=== PATIENT | female | born 1970 | race Caucasian/White ===

== ENCOUNTER 2016-11-03 08:38 | Emergency (ER) | payer BC ==
[2016-11-03] MEDS ORDERED: NS 0.9% 1000 ML* 1,000 ML IV ONE (08:58)
[2016-11-03] MEDS ORDERED: Ondansetron INJ* 2 MG/ML VIAL IV ONE (08:58)
[2016-11-03 09:40] LABS: Hematocrit 42 % (35-47); Hemoglobin 13.9 g/dl (12.0-16.0); Mean Corpuscular HGB Conc 34 g/dl (31-36); Mean Corpuscular Hemoglobin 32 pg (27-31); Mean Corpuscular Volume 94 fL (80-97); Mean Platelet Volume 9 um3 (7.4-10.4); Red Cell Distribution Width 13 % (10.5-15); White Blood Count 6.8 10^3/ul (3.5-10.8)
[2016-11-03 09:48] LABS: ALT 15 U/L (7-52); AST 17 U/L (13-39); Albumin 4.4 g/dL (3.2-5.2); Alkaline Phosphatase 40 U/L (34-104); Amylase 36 U/L (29-103); Anion Gap 6 mmol/L (2-11); BUN/Creatinine Ratio 12.4 (8-20); Blood Urea Nitrogen 13 mg/dL (6-24); C Reactive Protein < 1.00 mg/L (< 5.00); CO2 Carbon Dioxide 28 mmol/L (22-32); Calcium 9.4 mg/dL (8.6-10.3); Chloride 104 mmol/L (101-111); EGFR African American 72.2 (>60); EGFR Non-African American 56.2 (>60); Globulin 2.7 g/dL (2-4); Glucose 99 mg/dL (70-100); Lipase 16 U/L (11.0-82.0); Potassium 3.5 mmol/L (3.5-5.0); Sodium 138 mmol/L (133-145); Total Protein 7.1 g/dL (6.4-8.9)
[2016-11-03 09:52] LABS: Urine Bacteria 1+ (Absent); Urine Bilirubin Negative (Negative); Urine Glucose Negative (Negative); Urine Nitrite Negative (Negative)
[2016-11-03] MEDS ORDERED: Iodixanol* (CONTRAST) 320 MG/ML 100 ML SDV IV ONE (10:20)
--- NOTE | 2016-11-03 12:22 | RAD ---
Indication: Right lower quadrant pain. Contrast: Administered 114.0 ml of VISAPAQUE 320 mg/ml CT of the abdomen and pelvis was performed after oral and IV contrast administration. Coronal and sagittal reconstructed images were obtained. Lung bases demonstrate no pleural fluid. Dependent changes are noted. Heart demonstrates no pericardial effusion. Liver is normal in size. No focal lesions or intrahepatic ductal dilatation is noted. The patient status post cholecystectomy. The pancreas demonstrates no mass or pancreatic duct dilatation. The spleen is normal in size. No adrenal masses are noted. The kidneys demonstrate symmetric nephrograms without focal lesions. Aorta and inferior vena cava are unremarkable. CT of the pelvis demonstrates no retroperitoneal or pelvic lymphadenopathy. The uterus and ovaries are unremarkable. No dilated loops of bowel are noted. The appendix is normal. No hernias are noted. The urinary bladder is partially collapsed. There is grade 1 spondylolisthesis of L5 on S1. There are transpedicular screws at L5 and S1 with posterior fusion. The urinary bladder is unremarkable. Prominent periureteral vessels are noted especially on the left with enlarged left ovarian vein. The possibility of pelvic congestion syndrome should be considered. IMPRESSION: Normal appendix. No abnormal masses or fluid collections are noted. Postoperative changes in the lumbar spine. Prominent vasculature especially surrounding the left uterus. Prominent left ovarian vein and the possibility of pelvic congestion syndrome should be considered.
[2016-11-03 12:50] VITALS: BP 114/69
--- NOTE | 2016-11-03 17:44 | ED ---
Layne Uriostegui Thomas, scribed for Sukhdeep Souza MD on 11/03/16 at 1021 . Abdominal Pain/Female - HPI Summary HPI Summary: The pt is a 46 y/o F presenting to the ED c/o abd pain that began a month ago. The pain is diffuse but worse on her R side and periumbilical region. The pain is intermittent and described as cramping and burning. The pain is rated 3/10. The pain is aggravated by certain foods (she reports that she has been eating mostly sherbert in the last month). She also describes a sensation characterized as I feel that I am full of gas but Im not eating that much." The pain is alleviated by nothing. The patient has not treated the pain with anything SOLUTION MIXER. Pt denies vaginal discharge, vaginal bleeding, vomiting, SOB, and fever. PMHx: ovarian cysts, hypoglycemia. PSHx: neck surgery. SHx: smoking, occasional alcohol use, no illicit drugs. Her last menstrual cycle was in 2011. In the past, she has had abdominal pains similar to this but they eventually resolve spontaneously in a couple months. - History of Current Complaint Chief Complaint: EDAbdPain Stated Complaint: ABD PAIN/NAUSEA/TIRED Time Seen by Provider: 11/03/16 08:48 Hx Obtained From: Patient Hx Last Menstrual Period: 11/2011, had alot of surgeries, and periods stopped Onset/Duration: Lasting Weeks - one month, Still Present Timing: Intermittent Episode Lasting Pain Intensity: 3 Pain Scale Used: 0-10 Numeric Location: Diffuse - but worse on R side and periumbilicus Radiates: No Character: Burning, Cramping Aggravating Factor(s): Food - certain foods Associated Signs and Symptoms: Positive: Nausea, Diarrhea, Other: - POS: excessive gas; NEG: SOB. Negative: Fever, Blood in Stool, Vaginal Bleeding, Vaginal Discharge, Vomiting Allergies/Adverse Reactions: Allergies Allergy/AdvReac Type Severity Reaction Status Date / Time Sulfa Drugs Allergy Intermediate Hives Verified 07/12/15 06:58 Adhesive Tape Allergy Mild Rash Verified 07/12/15 06:58 Codeine Allergy Mild See Comment Verified 07/12/15 06:58 Morphine and Related AdvReac Intermediate Nausea And Verified 07/12/15 06:58 Vomiting PMH/Surg Hx/FS Hx/Imm Hx Previously Healthy: No Endocrine/Hematology History: Reports: Other Endocrine/Hematological Disorders - Hx hypoglycemia Denies: Hx Diabetes, Hx Thyroid Disease Cardiovascular History: Denies: Hx Hypertension Respiratory History: Denies: Hx Asthma, Hx Chronic Obstructive Pulmonary Disease (COPD) GI History: Denies: Hx Ulcer, Other GI Disorders - bone spurs-C3/C4, cspine surgery x 2 History: Reports: Other Problems/Disorders - Hx PCOS Musculoskeletal History: Reports: Hx Back Problems Denies: Hx Osteoporosis Sensory History: Denies: Hx Contacts or Glasses, Hx Hearing Aid Opthamlomology History: Denies: Hx Contacts or Glasses Neurological History: Reports: Hx Migraine - R/T NECK - Surgical History Surgery Procedure, Year, and Place: L5 disk, hardware 2010, Neck surgeries, back surgeries. Cervical to thoracic discs. CHOLECYSTECTOMY, 3 C-SECTIONS Hx Anesthesia Reactions: No - Immunization History Date of Tetanus Vaccine: Unknown Infectious Disease History: No Infectious Disease History: Denies: Hx Hepatitis, Hx Human Immunodeficiency Virus (HIV), History Other Infectious Disease, Traveled Outside the [place] in Last 30 Days - Family History Known Family History: Negative: Hypertension, Diabetes - Social History Alcohol Use: Occasionally Substance Use Type: Reports: None Smoking Status (MU): Current Every Day Smoker Type: Cigarettes Amount Used/How Often: 1/2 ppd Length of Time of Smoking/Using Tobacco: 30 years Review of Systems Negative: Fever Negative: Shortness Of Breath Positive: Abdominal Pain - 3/10, onset 1 month, cramping/burning, worsened with food, diffuse but greatest in severity on R side and periumbilicus, Diarrhea - without blood, Nausea, Other - POS: excessive gas. Negative: Vomiting Negative: discharge, other - NEG: vaginal bleeding All Other Systems Reviewed And Are Negative: Yes Physical Exam - Summary Physical Exam Summary: VITAL SIGNS: Reviewed. GENERAL: Patient is a well-developed and nourished female who is lying comfortable in the stretcher. ~Patient is not in any acute respiratory distress. HEAD AND FACE: Normocephalic and atraumatic. EYES: PERRLA, EOMI x 2, No injected conjunctiva. EARS: Hearing grossly intact. Ear canals and tympanic membranes are WNL. MOUTH: Oropharynx within normal limits. NECK: Supple, trachea is midline, no adenopathy, no JVD. CHEST: Symmetric, no tenderness at palpation LUNGS: Clear to auscultation bilaterally. No wheezing or crackles. CVS: RRR, S1 and S2 present, no murmurs or gallops appreciated. ABDOMEN: There is RLQ tenderness. Soft, no signs of distention. Positive bowel sounds. No rebound no guarding, and no masses palpated. No abdominal bruit or pulsations. EXTREMITIES: FROM in all major joints, no edema, no cyanosis or clubbing. NEURO: Alert and oriented x 3. No acute neurological deficits. Speech is normal. SKIN: Dry and warm Triage Information Reviewed: Yes Vital Signs On Initial Exam: Initial Vitals Temp Pulse Resp BP Pulse Ox 98.0 F 97 20 139/79 100 11/03/16 08:41 11/03/16 08:41 11/03/16 08:41 11/03/16 08:41 11/03/16 08:41 Vital Signs Reviewed: Yes - Antonio Coma Scale Coma Scale Total: 15 Diagnostics - Vital Signs Vital Signs Temp Pulse Resp BP Pulse Ox 11/03/16 10:00 63 110/78 100 11/03/16 09:30 66 110/83 97 11/03/16 09:24 71 96 11/03/16 09:00 97.8 F 81 14 117/73 100 11/03/16 08:41 98.0 F 97 20 139/79 100 - Laboratory Lab Results: Lab Results 11/03/16 11/03/16 11/03/16 Range/Units 09:18 09:18 09:18 WBC 6.8 (3.5-10.8) 10^3/ul RBC 4.40 (4.0-5.4) 10^6/ul Hgb 13.9 (12.0-16.0) g/dl Hct 42 (35-47) % MCV 94 (80-97) fL MCH 32 H (27-31) pg MCHC 34 (31-36) g/dl RDW 13 (10.5-15) % Plt Count 354 (150-450) 10^3/ul MPV 9 (7.4-10.4) um3 Neut % (Auto) 61.5 (38-83) % Lymph % (Auto) 29.0 (25-47) % [place] % (Auto) 7.1 (1-9) % Eos % (Auto) 1.7 (0-6) % Baso % (Auto) 0.7 (0-2) % Absolute Neuts (auto) 4.2 (1.5-7.7) 10^3/ul Absolute Lymphs (auto) 2.0 (1.0-4.8) 10^3/ul Absolute Monos (auto) 0.5 (0-0.8) 10^3/ul Absolute Eos (auto) 0.1 (0-0.6) 10^3/ul Absolute Basos (auto) 0 (0-0.2) 10^3/ul Absolute Nucleated RBC 0.01 10^3/ul Nucleated RBC % 0.1 Sodium 138 (133-145) mmol/L Potassium 3.5 (3.5-5.0) mmol/L Chloride 104 (101-111) mmol/L Carbon Dioxide 28 (22-32) mmol/L Anion Gap 6 (2-11) mmol/L BUN 13 (6-24) mg/dL Creatinine 1.05 H (0.51-0.95) mg/dL Est GFR ( Amer) 72.2 (>60) Est GFR (Non-Af Amer) 56.2 (>60) BUN/Creatinine Ratio 12.4 (8-20) Glucose 99 (70-100) mg/dL Lactic Acid (0.5-2.0) mmol/L Calcium 9.4 (8.6-10.3) mg/dL Total Bilirubin 1.00 (0.2-1.0) mg/dL AST 17 (13-39) U/L ALT 15 (7-52) U/L Alkaline Phosphatase 40 (34-104) U/L C-Reactive Protein < 1.00 (< 5.00) mg/L Total Protein 7.1 (6.4-8.9) g/dL Albumin 4.4 (3.2-5.2) g/dL Globulin 2.7 (2-4) g/dL Albumin/Globulin Ratio 1.6 (1-3) Amylase 36 (29-103) U/L Lipase 16 (11.0-82.0) U/L Urine Color Straw Urine Appearance Clear Urine pH 6.0 (5-9) Ur Specific [place] 1.002 L (1.010-1.030) Urine Protein Negative (Negative) Urine Ketones Negative (Negative) Urine Blood 1+ H (Negative) Urine Nitrate Negative (Negative) Urine Bilirubin Negative (Negative) Urine Urobilinogen Negative (Negative) Ur Leukocyte Esterase Negative (Negative) Urine WBC (Auto) Absent (Absent) Urine RBC (Auto) Trace(0-2/hpf) (Absent) Urine Bacteria 1+ H (Absent) Urine Glucose Negative (Negative) 11/03/16 Range/Units 09:18 WBC (3.5-10.8) 10^3/ul RBC (4.0-5.4) 10^6/ul Hgb (12.0-16.0) g/dl Hct (35-47) % MCV (80-97) fL MCH (27-31) pg MCHC (31-36) g/dl RDW (10.5-15) % Plt Count (150-450) 10^3/ul MPV (7.4-10.4) um3 Neut % (Auto) (38-83) % Lymph % (Auto) (25-47) % [place] % (Auto) (1-9) % Eos % (Auto) (0-6) % Baso % (Auto) (0-2) % Absolute Neuts (auto) (1.5-7.7) 10^3/ul Absolute Lymphs (auto) (1.0-4.8) 10^3/ul Absolute Monos (auto) (0-0.8) 10^3/ul Absolute Eos (auto) (0-0.6) 10^3/ul Absolute Basos (auto) (0-0.2) 10^3/ul Absolute Nucleated RBC 10^3/ul Nucleated RBC % Sodium (133-145) mmol/L Potassium (3.5-5.0) mmol/L Chloride (101-111) mmol/L Carbon Dioxide (22-32) mmol/L Anion Gap (2-11) mmol/L BUN (6-24) mg/dL Creatinine (0.51-0.95) mg/dL Est GFR ( Amer) (>60) Est GFR (Non-Af Amer) (>60) BUN/Creatinine Ratio (8-20) Glucose (70-100) mg/dL Lactic Acid 1.0 (0.5-2.0) mmol/L Calcium (8.6-10.3) mg/dL Total Bilirubin (0.2-1.0) mg/dL AST (13-39) U/L ALT (7-52) U/L Alkaline Phosphatase (34-104) U/L C-Reactive Protein (< 5.00) mg/L Total Protein (6.4-8.9) g/dL Albumin (3.2-5.2) g/dL Globulin (2-4) g/dL Albumin/Globulin Ratio (1-3) Amylase (29-103) U/L Lipase (11.0-82.0) U/L Urine Color Urine Appearance Urine pH (5-9) Ur Specific [place] (1.010-1.030) Urine Protein (Negative) Urine Ketones (Negative) Urine Blood (Negative) Urine Nitrate (Negative) Urine Bilirubin (Negative) Urine Urobilinogen (Negative) Ur Leukocyte Esterase (Negative) Urine WBC (Auto) (Absent) Urine RBC (Auto) (Absent) Urine Bacteria (Absent) Urine Glucose (Negative) Result Diagrams: 11/03/16 09:18 11/03/16 09:18 Lab Statement: Any lab studies that have been ordered have been reviewed, and results considered in the medical decision making process. - CT CT Abd/Pel CT Interpretation: Positive (See Comments) - Normal appendix. No abnormal masses or fluid collections are noted. Postoperative changes in the lumbar spine. Prominent vasculature especially surrounding the left uterus. Prominent left ovarian vein and the possibility of pelvic congestion syndrome should be considered. CT Interpretation Completed By: Radiologist Abdominal Pain Fem Course/Dx - Course Course Of Treatment: The pt is a 46 y/o F presenting to the ED c/o abd pain that began a month ago. The pain is diffuse but worse on her R side and periumbilical region. The pain is intermittent and described as cramping and burning. The pain is rated 3/10. The pain is aggravated by certain foods (she reports that she has been eating mostly sherbert in the last month). She also describes a sensation characterized as I feel that I am full of gas but Im not eating that much. The pain is alleviated by nothing. The patient has not treated the pain with anything SOLUTION MIXER. Pt additionally c/o nausea, excessive gas, and diarrhea (without blood). Pt denies vaginal discharge, vaginal bleeding, vomiting, SOB, and fever. PMHx: ovarian cysts, hypoglycemia. PSHx: neck surgery. SHx: smoking, occasional alcohol use, no illicit drugs. Her last menstrual cycle was in 2011. In the past, she has had abdominal pains similar to this but they eventually resolve spontaneously in a couple months. Test results are without any significant abnormality. UA is negative for UTI. CT Abd/ Pel reveals Normal appendix. No abnormal masses or fluid collections are noted. Postoperative changes in the lumbar spine. Prominent vasculature especially surrounding the left uterus. Prominent left ovarian vein and the possibility of pelvic congestion syndrome should be considered. I offered the paitnet a pelvic exam but she declined. The patients symptoms have improved and the patient is asymptomatic. The patient has been unable to give any stool samples even though the patient has been here for approximately 6 hours. The patient will be discharged home with follow up from her PCP. She is hemodynamically stale and alert and oriented x3. I discussed all the findings and test results with the patient. Patient was instructed to return to the emergency room immediately if any of the symptoms return or worsens. Plan of care was discussed with the patient and understands and agrees. All questions were answered at patient satisfaction. There were no further complaints or concerns. - Diagnoses Differential Diagnosis: Positive: Appendicitis, Bowel Obstruction, Constipation , Diverticulitis, Irritable Bowel Syndrome, Ovarian Cyst, Pancreatitis, Renal Colic, Urinary Tract Infection Provider Diagnoses: Abdominal pain, Pelvic congestion Discharge - Discharge Plan Condition: Stable Disposition: HOME Prescriptions: Ondansetron TAB* [Zofran 4 MG Tab*] 4 mg PO Q6H PRN #12 tab PRN Reason: Vomiting Patient Education Materials: Abdominal Pain (ED) Referrals: Herb Cintron MD [Primary Care Provider] - 3 Days The documentation as recorded by the Layne lewis Thomas accurately reflects the service I personally performed and the decisions made by me, Sukhdeep Souza MD.
== END 2016-11-03 13:40 | disposition home or self-care (01) ==
LOC: ED 08:38
DX: N94.89 Other specified conditions associated with female genital organs and menstrual cycle (principal); R10.9 Unspecified abdominal pain
CPT/HCPCS: 36415; 74177; 80053; 81003; 81015; 82150; 83605; 83690; 85025; 86140; 87086; 96374; 99282; J2405; Q9967

== ENCOUNTER 2017-10-06 15:51 | Emergency (ER) | payer BC ==
[2017-10-06 16:54] LABS: ABS Basophils 0 10^3/ul (0-0.2); ABS Eosinophils 0.1 10^3/ul (0-0.6); ABS Lymphocytes 2.4 10^3/ul (1.0-4.8); ABS Monocytes 0.5 10^3/ul (0-0.8); ABS Neutrophils 3.2 10^3/ul (1.5-7.7); ABS Nucleated RBC 0 10^3/ul; Eosinophil % 2.3 % (0-6); Hematocrit 40 % (35-47); Hemoglobin 13.5 g/dl (12.0-16.0); Lymphocyte % 38.4 % (25-47); Mean Corpuscular HGB Conc 34 g/dl (31-36); Mean Corpuscular Hemoglobin 32 pg (27-31); Mean Corpuscular Volume 93 fL (80-97); Mean Platelet Volume 8.6 um3 (7.4-10.4); Nucleated Red Blood Cells % 0; Platelet Count 351 10^3/ul (150-450); Red Blood Count 4.28 10^6/ul (4.00-5.40); Red Cell Distribution Width 13 % (10.5-15); White Blood Count 6.2 10^3/ul (3.5-10.8)
[2017-10-06 17:15] LABS: EGFR Non-African American 60.6 (>60)
[2017-10-06 18:49] LABS: Urine Appearance Clear; Urine Blood 2+ (Negative); Urine Color Yellow; Urine Ketones Negative (Negative); Urine Protein Negative (Negative); Urine Red Blood Cell 1+(3-5/hpf) (Absent); Urine Specific Gravity 1.009 (1.010-1.030); Urine Urobilinogen Negative (Negative); Urine White Blood Cell Absent (Absent)
--- NOTE | 2017-10-06 19:24 | ED ---
Back Pain - HPI Summary HPI Summary: This is debbie Marino documenting for attending physician Freddie Fulton M.D. Pt is a 47 y/o F w/ c/o right-sided back, right-sided flank, and right- sided abdomen pain onsetting three days ago. Pain is described as constant and, on triage, radiating into groin and pain is rated 8/10 on triage. Pain is noted to be worst by right flank down by hip and reports that movement worsens pain. In the room, she notes being, "fairly comfortable". Pt notes nausea but denies vomiting, diarrhea, dysuria, and blood in urine. She reports taking ibuprofen and LNMP was 2011. Pt denies Hx of kidney problems. - History of Current Complaint Chief Complaint: EDFlankPain Stated Complaint: PAIN ON RT SIDE Time Seen by Provider: 10/06/17 18:53 Hx Obtained From: Patient Hx Last Menstrual Period: 11/2011, had alot of surgeries, and periods stopped Onset/Duration: Lasting Days - 3 days ago Onset/Duration: Started Days Ago - 3 days ago Timing: Constant Severity Currently: Severe Pain Intensity: 8 Pain Scale Used: 0-10 Numeric - 8/10 Aggravating Symptom(s): Movement Alleviating Symptom(s): Nothing Associated Signs And Symptoms: Positive: Abdominal Pain - right, Flank Pain - right, Other - POSITIVE: right-sided back pain, radiating pain to groin, nausea NEGATIVE: vomiting, diarrhea, dysuria, blood in urine - Allergies/Home Medications Allergies/Adverse Reactions: Allergies Allergy/AdvReac Type Severity Reaction Status Date / Time MS Sulfa Drugs [Sulfa Drugs] Allergy Intermediate Hives Verified 10/06/17 16:03 Adhesive Tape Allergy Mild Rash Verified 10/06/17 16:03 MS Codeine [Codeine] Allergy Mild See Comment Verified 10/06/17 16:03 MS Morphine and Related AdvReac Intermediate Nausea And Verified 10/06/17 16:03 [Morphine and Related] Vomiting Home Medications: Home Medications Cholecalciferol TAB* [Vitamin D TAB*] 1,000 unit PO DAILY 10/06/17 [History Confirmed 10/06/17] Diazepam TAB(*) [Valium TAB(*)] 10 mg PO BEDTIME PRN 10/06/17 [History Confirmed 10/06/17] Ferrous Sulfate TAB* 325 mg PO DAILY 10/06/17 [History Confirmed 10/06/17] Ibuprofen TAB* [Motrin TAB* 800 MG] 800 mg PO BEDTIME PRN 10/06/17 [History Confirmed 10/06/17] PMH/Surg Hx/FS Hx/Imm Hx Endocrine/Hematology History: Reports: Other Endocrine/Hematological Disorders - Hx hypoglycemia Denies: Hx Diabetes, Hx Thyroid Disease Cardiovascular History: Denies: Hx Hypertension, Hx Pacemaker/ICD Respiratory History: Denies: Hx Asthma, Hx Chronic Obstructive Pulmonary Disease (COPD) GI History: Denies: Hx Ulcer, Other GI Disorders - bone spurs-C3/C4, cspine surgery x 2 History: Reports: Other Problems/Disorders - Hx PCOS Denies: Hx Renal Disease Musculoskeletal History: Reports: Hx Back Problems Denies: Hx Osteoporosis Sensory History: Denies: Hx Contacts or Glasses, Hx Hearing Aid Opthamlomology History: Denies: Hx Contacts or Glasses Neurological History: Reports: Hx Migraine - R/T NECK Psychiatric History: Denies: Hx Panic Disorder - Surgical History Surgery Procedure, Year, and Place: L5 diskX2 WITH HARDWARE 2009. 3 LEVEL Cervical FUSION. CHOLECYSTECTOMY, 3 C-SECTIONS Hx Anesthesia Reactions: No - Immunization History Date of Tetanus Vaccine: Unknown Infectious Disease History: No Infectious Disease History: Denies: Hx Hepatitis, Hx Human Immunodeficiency Virus (HIV), History Other Infectious Disease, Traveled Outside the [place] in Last 30 Days - Family History Known Family History: Negative: Hypertension, Diabetes - Social History Alcohol Use: Occasionally Substance Use Type: Reports: None Smoking Status (MU): Current Every Day Smoker Type: Cigarettes Amount Used/How Often: 1/2 ppd Length of Time of Smoking/Using Tobacco: 30 years Review of Systems Positive: Abdominal Pain - right sided , Nausea. Negative: Vomiting, Diarrhea Positive: flank pain - right sided, other - NEGATIVE: blood in urine POSITIVE: radiating pain to groin. Negative: dysuria Positive: Other - right sided back pain All Other Systems Reviewed And Are Negative: Yes Physical Exam - Summary Physical Exam Summary: Appearance: Well-appearing, Well-nourished, lying in bed comfortably Skin: Warm, dry, no obvious rash Eyes: sclera anicteric, no conjunctival pallor ENT: mucous membranes moist, pharynx appears normal Neck: Supple, nontender Respiratory: Clear to auscultation, no signs of respiratory distress Cardiovascular: Normal S1, S2. No murmurs. Normal distal pulses in tibial and radial bilaterally. Abdomen: Soft, nontender, normal active bowel sounds present Musculoskeletal: Normal, Strength/ROM Intact Neurological: A&Ox3, awake and alert, mentation is normal, speech is fluent and appropriate Psychiatric: affect is normal, does not appear anxious or depressed Triage Information Reviewed: Yes Vital Signs On Initial Exam: Initial Vitals Temp Pulse Resp BP Pulse Ox 97.8 F 84 16 135/73 98 10/06/17 16:01 10/06/17 16:01 10/06/17 16:01 10/06/17 16:01 10/06/17 16:01 Vital Signs Reviewed: Yes Diagnostics - Vital Signs Vital Signs Temp Pulse Resp BP Pulse Ox 10/06/17 17:40 70 16 121/65 10/06/17 16:01 97.8 F 84 16 135/73 98 - Laboratory Lab Results: Lab Results 10/06/17 10/06/17 10/06/17 Range/Units 16:45 16:45 18:27 WBC 6.2 (3.5-10.8) 10^3/ul RBC 4.28 (4.00-5.40) 10^6/ul Hgb 13.5 (12.0-16.0) g/dl Hct 40 (35-47) % MCV 93 (80-97) fL MCH 32 H (27-31) pg MCHC 34 (31-36) g/dl RDW 13 (10.5-15) % Plt Count 351 (150-450) 10^3/ul MPV 8.6 (7.4-10.4) um3 Neut % (Auto) 51.2 (38-83) % Lymph % (Auto) 38.4 (25-47) % [place] % (Auto) 7.4 H (0-7) % Eos % (Auto) 2.3 (0-6) % Baso % (Auto) 0.7 (0-2) % Absolute Neuts (auto) 3.2 (1.5-7.7) 10^3/ul Absolute Lymphs (auto) 2.4 (1.0-4.8) 10^3/ul Absolute Monos (auto) 0.5 (0-0.8) 10^3/ul Absolute Eos (auto) 0.1 (0-0.6) 10^3/ul Absolute Basos (auto) 0 (0-0.2) 10^3/ul Absolute Nucleated RBC 0 10^3/ul Nucleated RBC % 0 Sodium 140 (135-145) mmol/L Potassium 4.5 (3.5-5.0) mmol/L Chloride 106 (101-111) mmol/L Carbon Dioxide 28 (22-32) mmol/L Anion Gap 6 (2-11) mmol/L BUN 13 (6-24) mg/dL Creatinine 0.98 H (0.51-0.95) mg/dL Est GFR ( Amer) 73.3 (>60) Est GFR (Non-Af Amer) 60.6 (>60) BUN/Creatinine Ratio 13.3 (8-20) Glucose 91 (70-100) mg/dL Calcium 9.8 (8.6-10.3) mg/dL Total Bilirubin 0.90 (0.2-1.0) mg/dL AST 18 (13-39) U/L ALT 15 (7-52) U/L Alkaline Phosphatase 37 (34-104) U/L Total Protein 7.0 (6.4-8.9) g/dL Albumin 4.5 (3.2-5.2) g/dL Globulin 2.5 (2-4) g/dL Albumin/Globulin Ratio 1.8 (1-3) Lipase 19 (11.0-82.0) U/L Urine Color Yellow Urine Appearance Clear Urine pH 6.0 (5-9) Ur Specific [place] 1.009 L (1.010-1.030) Urine Protein Negative (Negative) Urine Ketones Negative (Negative) Urine Blood 2+ A (Negative) Urine Nitrate Negative (Negative) Urine Bilirubin Negative (Negative) Urine Urobilinogen Negative (Negative) Ur Leukocyte Esterase Negative (Negative) Urine WBC (Auto) Absent (Absent) Urine RBC (Auto) 1+(3-5/hpf) A (Absent) Ur Squamous Epith Cells Present A (Absent) Urine Bacteria Absent (Absent) Urine Glucose Negative (Negative) Result Diagrams: 10/06/17 16:45 10/06/17 16:45 Lab Statement: Any lab studies that have been ordered have been reviewed, and results considered in the medical decision making process. - CT CT abd/pel CT Interpretation: No Acute Changes CT Interpretation Completed By: Radiologist - No acute intra-abdominal findings. This report was reviewed by ED physician. Re-Evaluation - Re-Evaluation First Eval Re-Evaluation Time: 21:27 Comment: Results of tests were discussed with patient. Pt informed they will be discharged. Back Pain Course/Dx - Diagnoses Provider Diagnoses: Acute abdominal pain in right flank Discharge - Sign-Out/Discharge Documenting (check all that apply): Patient Departure - Discharge Plan Condition: Good Disposition: HOME Patient Education Materials: Acute Abdominal Pain (ED) Referrals: Brionna Pineda [facility]ORDER [Primary Care Provider] - Additional Instructions: I suspect the pain is coming from the abdominal wall. With the tests we did today we have ruled out appendicitis, kidney problems, or other serious causes of your pain, so you can feel free to take OTC pain medications. - Billing Disposition and Condition Condition: GOOD Disposition: Home
[2017-10-06] MEDS ORDERED: Iohexol 300* (CONTRAST) 10 ML SDV IV ONE (19:41)
[2017-10-06 21:54] VITALS: BP 131/81
--- NOTE | 2017-10-07 07:34 | RAD ---
Indication: Right-sided abdominal pain. Contrast:Administered 127.3 ml of OMNIPAQUE 300 mg/ml CT of the abdomen and pelvis was performed after IV contrast administration. Coronal and sagittal reconstructed images were obtained. Comparison is made with previous exam dated November 03, 2016. Lung bases demonstrate no pleural fluid, nodules or masses. The liver is normal in size. Low density lesion in the medial segment of the left lobe of liver likely representing a small cyst. This is unchanged from prior exam. No intrahepatic duct dilatation is noted. Patient status post cholecystectomy. No common duct or intrahepatic duct dilatation is noted. The pancreas demonstrates no mass or pancreatic duct dilatation. The spleen is normal in size. No adrenal masses are noted. The kidneys demonstrate symmetric nephrograms without focal lesions. There is mild gastric distention without focal wall thickening. Small bowel demonstrates no abnormal dilatation. CT of the pelvis demonstrates no definite evidence of appendicitis. The appendix is visualized and is normal. Urinary bladder is unremarkable. The uterus and ovaries are unremarkable There is evidence of left ovarian vein coiling. Patient presumably has had prior pelvic congestion syndrome. No hernias are noted. The bony structures demonstrate grade 1 spondylolisthesis of L5 on S1 is noted. The remainder of the bony structures are unremarkable. IMPRESSION: No evidence of abnormal masses or fluid collections. Hepatic cyst is noted. No definite evidence of appendicitis.
== END 2017-10-06 21:53 | disposition home or self-care (01) ==
LOC: ED 15:51
DX: R10.9 Unspecified abdominal pain (principal); K76.89 Other specified diseases of liver; F17.210 Nicotine dependence, cigarettes, uncomplicated; Z88.2 Allergy status to sulfonamides; Z88.5 Allergy status to narcotic agent
CPT/HCPCS: 36415; 74177; 80053; 81003; 81015; 83690; 85025; 99283; Q9967